=== PATIENT | female | born 1945 | race Caucasian/White ===

== ENCOUNTER → 2017-10-14 | Outpatient (CLI) | payer MEDICARE, OTHER ==
[~2017-10-14] MED LIST: CLON-327 PO; IBAN150T6 PO; LEVO75TA73 PO; LEVOXYL; LOSA50TA72 PO; NORVASC
--- NOTE | 2017-10-15 11:10 | RADIOLOGY IMAGING REPORT ---
FACILITY: [facility] - [place] PATIENT NAME: LEROY MORGAN : [id number] MR: [id number] V: [id number] EXAM DATE: ORDERING PHYSICIAN: RASHMI HOSKINS TECHNOLOGIST: Nicol Hurst PROCEDURE:BILATERAL DIGITAL SCREENING MAMMOGRAM WITH CAD ASSISTED INTERPRETATION & 3D TOMOSYNTHESIS COMPARISON:Prior mammograms 09/14/16, 07/15/15, 07/07/14, 05/06/13, 04/30/12, 04/25/11 INDICATIONS:SCREENING FINDINGS: Mildly heterogeneous fibroglandular tissue is seen throughout the breasts. DIAGNOSTIC CATEGORY 2--BENIGN FINDING. RECOMMENDATIONS: ROUTINE MAMMOGRAM AND CLINICAL EVALUATION. IMPRESSION: BIRADS 2: Benign finding No significant abnormality is seen. Dictated by: Ayleen Pitts M.D. on 10/14/2017 at 17:21 Transcribed by: OSITO on 10/15/2017 at 8:30 Approved by: Ayleen Pitts M.D. on 10/15/2017 at 11:09 [facility]
== END ==
LOC: MAMO 03:47
PROVIDERS: ATTEND Nurse Practitioner Family
DX: Z12.31 Encounter for screening mammogram for malignant neoplasm of breast (principal)
CPT/HCPCS: 77063; 77067

== ENCOUNTER → 2017-11-14 | Outpatient (CLI) | payer MEDICARE, OTHER ==
[2017-11-14 11:56] LABS: PLATELET COUNT, AUTOMATED 366 K/uL (150-450)
--- NOTE | 2017-11-14 12:51 | RADIOLOGY IMAGING REPORT ---
FACILITY: [facility] PATIENT NAME: Rose Rodrigues : 1945 MR: [id number] V: [id number] EXAM DATE: ORDERING PHYSICIAN: RASHMI HOSKINS TECHNOLOGIST: Location: [facility] - [place] Patient: Rose Rodrigues : 1945 Visit/Account:[id number] Date of Sevice: 11/14/2017 CHEST PA AND LAT Indication: Shortness of breath, and COPD Comparison: Chest x-ray 06/22/2017 Findings: Lungs: There is hyperinflation and flattening of the diaphragms. The lungs are clear. Mediastinum/pulmonary vasculature: Heart size and pulmonary vasculature are normal. Bones/soft tissues: Benign calcification is seen medial to the right shoulder. This is unchanged. IMPRESSION: 1. Findings consistent with COPD. 2. Clear lungs. Report Dictated By: Bryant Crook at 11/14/2017 12:46 PM Report E-Signed By: Bryant Crook at 11/14/2017 12:47 PM WSN:[id number]
== END ==
LOC: RAD 11:26
PROVIDERS: ATTEND Nurse Practitioner Family
DX: J44.9 Chronic obstructive pulmonary disease, unspecified (principal); J96.11 Chronic respiratory failure with hypoxia; I10 Essential (primary) hypertension; J44.1 Chronic obstructive pulmonary disease with (acute) exacerbation
CPT/HCPCS: 36415; 71046; 82040; 82247; 82310; 82374; 82435; 82565; 82947; 84075; 84132; 84155; 84295; 84450; 84460; 84520; 85025; 85379; 85651

== ENCOUNTER → 2018-01-14 | Outpatient (CLI) | payer MEDICARE, OTHER | LOC: US 00:50 | PROVIDERS: ATTEND Internal Medicine | DX: I34.1 Nonrheumatic mitral (valve) prolapse (principal); I51.7 Cardiomegaly | CPT/HCPCS: 93306 ==

== ENCOUNTER → 2018-01-17 | Outpatient (CLI) | payer MEDICARE, OTHER | LOC: RESP 01:37 | PROVIDERS: ATTEND Internal Medicine | DX: J98.4 Other disorders of lung (principal) | CPT/HCPCS: 94060; 94618; 94726; 94729 ==

== ENCOUNTER → 2018-12-04 | Outpatient (CLI) | payer MEDICARE, OTHER ==
[~2018-12-04] MED LIST changes: -LOSA50TA72 PO; +LOSA50TA80 PO
--- NOTE | 2018-12-05 11:25 | RADIOLOGY IMAGING REPORT ---
FACILITY: [facility] - [place] PATIENT NAME: LEROY MORGAN : [id number] MR: [id number] V: [id number] EXAM DATE: [id number] ORDERING PHYSICIAN: RASHMI HOSKINS TECHNOLOGIST: Nicol Hurst PROCEDURE:BILATERAL DIGITAL SCREENING MAMMOGRAM WITH CAD ASSISTED INTERPRETATION & 3D TOMOSYNTHESIS COMPARISON:Prior mammograms dated 10/14/17, 09/14/16, 07/15/15, 07/07/14, 05/06/13, 04/30/12 INDICATIONS:SCREENING FINDINGS: The breasts are heterogeneously dense which can obscure small masses. The parenchymal pattern has remained stable when allowing for difference in mammographic technique & patient positioning. DIAGNOSTIC CATEGORY 1--NEGATIVE. RECOMMENDATIONS: ROUTINE MAMMOGRAM AND CLINICAL EVALUATION. IMPRESSION: BIRADS 1: Negative. No significant abnormality is seen. Dictated by: Ayleen Pitts M.D. on 12/04/2018 at 15:01 Transcribed by: OSITO on 12/05/2018 at 9:25 Approved by: Ayleen Pitts M.D. on 12/05/2018 at 11:24 [facility]
== END ==
LOC: MAMO 06:51
PROVIDERS: ATTEND Nurse Practitioner Family
DX: Z12.31 Encounter for screening mammogram for malignant neoplasm of breast (principal)
CPT/HCPCS: 77063; 77067

== ENCOUNTER → 2019-01-01 | Outpatient (CLI) | payer MEDICARE, OTHER | LOC: RESP 14:57 | PROVIDERS: ATTEND Nurse Practitioner Family | DX: J96.11 Chronic respiratory failure with hypoxia (principal); J44.9 Chronic obstructive pulmonary disease, unspecified | CPT/HCPCS: 94667 ==